=== PATIENT | female | born 1945 | race Caucasian/White ===

== ENCOUNTER 2017-05-28 19:24 | Inpatient (IN) | payer MEDICARE, OTHER ==
[~2017-05-28] VITALS: Ht 170.2 cm; Wt 58.5 kg
[~2017-05-28 19:24] MED LIST: ALBU90OI61 INH; ALBUIS INH; AMIT25; AMLO5 PO; ASPI325 PO; ASPI81CH; ASPI81CH PO; ASPI81EC; ATEN50; AZIT250 PO; CLOP75; DOCU100; DOCU100 PO; ESCI20; EZET10; FLUC100 PO; FOLI1 PO; HYDACE5 PO; HYDMOR2 PO; IBUP800; ISOMON30; Isosorbide Mono30 MG PO; LEVO750 PO; LOSHYD; METH10; METO50ER; MULVITMIND PO; NITRSPRAY; PANT40 PO; POTA20PAC; POTCHL20ER PO; PROBIOTIC1 EAC1 PO; PROM25 PO; Percocet 5-3251 EACH PO; QUET25; QUIN325; RANI150; RXHYDACE PO; RXPRED10; RXPROM25S PR; TIOT18; TRAM50; TRIHYD253A; VITAMIN D31000 UNIT PO; XARELTO15 MG PO
[2017-05-28] MEDS ORDERED: DEXA2 PO (20:07)
[2017-05-28] MEDS ORDERED: NYST237S PO (20:08)
[2017-05-28] MEDS ORDERED: BENZ100A PO (20:08)
[2017-05-28] MEDS ORDERED: [UNRECOGNIZED DRUG - OTHER] PO (20:09)
[2017-05-28] MEDS ORDERED: PROM25 PO (20:10)
[2017-05-28 20:23] LABS: Alanine Aminotransfer (ALT/SGP 39 U/L (12-78); Albumin, Blood 3.1 g/dL (3.4-5.0); Albumin/Globulin Ratio 0.7 (0.8-1.8); Alk Phos 84 U/L (50-136); Anion Gap 9 mmol/L (6-16); Aspartate Aminotrans (AST/SGOT 28 U/L (12-37); Bilirubin, Total 0.5 mg/dL (0.1-1.0); Blood Urea Nitrogen 29 mg/dL (8-24); Bun/Creatinine Ratio 48.6 (12.0-20.0); CO2, Blood 23 mmol/L (21-32); Calcium, Blood 9.2 mg/dL (8.5-10.1); Chloride, Blood 108 mmol/L (98-108); Globulin, Blood 4.4 g/dL (2.2-4.0); Glomerular Filtration Rate >60 (60-); Glucose, Blood 108 mg/dL (70-99); Potassium, Blood 3.8 mmol/L (3.5-5.5); Sodium, Blood 140 mmol/L (136-145); Total Protein, Blood 7.5 g/dL (6.4-8.2)
[2017-05-28 20:37] LABS: BASOPHILS ABSOLUTE AUTO 0.05 K/mm3 (0.00-0.23); BASOPHILS PERCENT AUTO 0 % (0-2); EOSINOPHILS ABSOLUTE AUTO 0.14 K/mm3 (0.00-0.68); EOSINOPHILS PERCENT AUTO 1 % (0-6); Hematocrit 45.6 % (33.0-51.0); Hemoglobin 14.1 g/dL (11.5-16.0); IMMATURE GRAN ABSOLUTE AUTO 0.21 K/mm3 (0.00-0.10); IMMATURE GRAN PERCENT AUTO 2 % (0-1); LYMPHOCYTES ABSOLUTE AUTO 3.99 K/mm3 (0.84-5.20); LYMPHOCYTES PERCENT AUTO 31 % (21-46); MONOCYTES ABSOLUTE AUTO 0.71 K/mm3 (0.16-1.47); MONOCYTES PERCENT AUTO 6 % (4-13); Mean Corpuscular HGB 28.9 pg (26.0-34.0); Mean Corpuscular HGB Conc 30.9 g/dL (31.5-36.5); Mean Corpuscular Volume 93 fL (80-100); Mean Platelet Volume 8.9 fL (9.1-12.4); NEUTROPHILS ABSOLUTE AUTO 7.64 K/mm3 (1.96-9.15); NEUTROPHILS PERCENT AUTO 60 % (41-73); Platelet Count 233 K/mm3 (150-400); RDW Coefficient Variation 16.6 % (11.7-14.2); Red Blood Cell Count 4.88 M/mm3 (3.80-5.20); White Blood Cell Count 12.74 K/mm3 (4.00-11.30)
[2017-05-29 00:17] LABS: Source, Urine Catheter
[2017-05-29 00:27] LABS: Appearance, Urine Cloudy (Clear); Bilirubin, Urine 1+ (Neg); Blood, Urine 1+ (Neg); Color, Urine Amber (P-Yellow); Glucose Qualitative, Urine Neg (Neg); Ketones, Urine 1+ (Neg); Leukocyte Esterase, Urine 1+ (Neg); Nitrite, Urine Pos (Neg); Protein, Urine 2+ (Neg); Urobilinogen, Urine 1+ (Normal)
[2017-05-29 00:36] LABS: U Amphetamine Screen Not Detected; U Barbituate Screen Not Detected; U Benzodiazapine Screen Not Detected; U Buprenorphine Screen Not Detected; U Cannabinoids Screen Not Detected; U Cocaine Screen Not Detected; U Methadone Screen Not Detected; U Methamphetamine Screen DETECTED; U Opiates Screen Not Detected; U Oxycodone Screen Not Detected; U Phencyclidine Screen Not Detected; U Propoxyphene Screen Not Detected
[2017-05-29 00:37] LABS: Amorphous Heavy (0-Heavy); Bacteria Many /hpf; Calcium Oxalate Crystals Few /hpf; Red Blood Cells, Urine Rare /hpf (0-2); Squamous Epithelial Cells Few /hpf (Few)
[2017-05-29 03:53] LABS: Influenza A Negative (NEGATIVE); Influenza B Negative (NEGATIVE)
[2017-05-29 04:46] LABS: BASOPHILS ABSOLUTE AUTO 0.04 K/mm3 (0.00-0.23); BASOPHILS PERCENT AUTO 0 % (0-2); EOSINOPHILS ABSOLUTE AUTO 0.01 K/mm3 (0.00-0.68); EOSINOPHILS PERCENT AUTO 0 % (0-6); Hemoglobin 15.2 g/dL (11.5-16.0); IMMATURE GRAN ABSOLUTE AUTO 0.13 K/mm3 (0.00-0.10); IMMATURE GRAN PERCENT AUTO 1 % (0-1); LYMPHOCYTES ABSOLUTE AUTO 0.84 K/mm3 (0.84-5.20); LYMPHOCYTES PERCENT AUTO 4 % (21-46); MONOCYTES ABSOLUTE AUTO 0.99 K/mm3 (0.16-1.47); MONOCYTES PERCENT AUTO 4 % (4-13); Mean Corpuscular HGB 28.7 pg (26.0-34.0); Mean Corpuscular HGB Conc 32.3 g/dL (31.5-36.5); Mean Platelet Volume 9.1 fL (9.1-12.4); NEUTROPHILS PERCENT AUTO 91 % (41-73); Platelet Count 218 K/mm3 (150-400); RDW Coefficient Variation 17.2 % (11.7-14.2); RDW Standard Deviation 54.4 fL (35.1-46.3); Red Blood Cell Count 5.29 M/mm3 (3.80-5.20); White Blood Cell Count 22.51 K/mm3 (4.00-11.30)
[2017-05-29 05:02] LABS: Alanine Aminotransfer (ALT/SGP 39 U/L (12-78); Albumin/Globulin Ratio 0.6 (0.8-1.8); Alk Phos 88 U/L (50-136); Anion Gap 11 mmol/L (6-16); Aspartate Aminotrans (AST/SGOT 23 U/L (12-37); Bilirubin, Total 0.7 mg/dL (0.1-1.0); Blood Urea Nitrogen 34 mg/dL (8-24); Bun/Creatinine Ratio 51.4 (12.0-20.0); CO2, Blood 26 mmol/L (21-32); Calcium, Blood 9.2 mg/dL (8.5-10.1); Chloride, Blood 104 mmol/L (98-108); Creatinine, Blood 0.66 mg/dL (0.40-1.00); Globulin, Blood 4.7 g/dL (2.2-4.0); Glomerular Filtration Rate >60 (60-); Glucose, Blood 151 mg/dL (70-99); Mean Corpuscular Volume 89 fL (80-100); Potassium, Blood 3.8 mmol/L (3.5-5.5); Sodium, Blood 141 mmol/L (136-145); Total Protein, Blood 7.7 g/dL (6.4-8.2)
[2017-05-30 05:31] LABS: Hematocrit 39.3 % (33.0-51.0); Hemoglobin 12.9 g/dL (11.5-16.0); Mean Corpuscular HGB 28.6 pg (26.0-34.0); Mean Corpuscular HGB Conc 32.8 g/dL (31.5-36.5); Mean Corpuscular Volume 87 fL (80-100); Mean Platelet Volume 9.4 fL (9.1-12.4); Platelet Count 150 K/mm3 (150-400); RDW Coefficient Variation 16.9 % (11.7-14.2); RDW Standard Deviation 53.4 fL (35.1-46.3); Red Blood Cell Count 4.51 M/mm3 (3.80-5.20); White Blood Cell Count 9.28 K/mm3 (4.00-11.30)
[2017-05-30] MEDS ORDERED: NITR.4SL SL (15:19)
[2017-05-30] MEDS ORDERED: ACET325 PO (15:20)
[2017-05-30] MEDS ORDERED: CEFU50SU PO (15:21)
[2017-05-30] MEDS ORDERED: TRAM50 PO (15:22)
== END 2017-05-30 21:55 | disposition home or self-care (01) | DRG 536 ==
LOC: ER 19:24 → SURS 22:40
PROVIDERS: Emergency Medicine; Internal Medicine
DX: S72.002A Fracture of unspecified part of neck of left femur, initial encounter for closed fracture (principal); C34.90 Malignant neoplasm of unspecified part of unspecified bronchus or lung; N39.0 Urinary tract infection, site not specified; C79.31 Secondary malignant neoplasm of brain; E86.0 Dehydration; D72.829 Elevated white blood cell count, unspecified; F15.10 Other stimulant abuse, uncomplicated; I25.2 Old myocardial infarction; W18.30XA Fall on same level, unspecified, initial encounter; M79.7 Fibromyalgia; F17.210 Nicotine dependence, cigarettes, uncomplicated
CPT/HCPCS: 36415; 51701; 70450; 72192; 73502; 80053; 81001; 85025; 85027; 87077; 87086; 87186; 87804; 93005; 93010; 94760; 96374; 99285; J0696; J2405; J3010; J7030